=== PATIENT | female | born 1955 | race Caucasian/White ===

== ENCOUNTER 2023-09-13 06:26 | Observation (INO) ==
[~2023-09-13 06:26] MED LIST: Naloxone 0.4 mg VIAL 0.4 mg/ml 1 ml VIAL IV PRN; Rocuronium 50 mg VIAL 10 mg/ml 5 ml VIAL (50 mg) ONE; fentaNYL 100 mcg/2 ml 50 MCG/ML VIAL IV PRN
[2023-09-13] MEDS ORDERED: Ondansetron 4 mg VIAL 2 MG/ML 2 ml VIAL ONE (06:27)
[2023-09-13] MEDS ORDERED: fentaNYL 100 mcg/2 ml 50 MCG/ML VIAL ONE (06:27)
[2023-09-13] MEDS ORDERED: Lidocaine 2% PF 5 ML VIAL ONE (06:27)
[2023-09-13] MEDS ORDERED: Sterile Water for Inj 10 ML ONE (06:27)
[2023-09-13] MEDS ORDERED: Midazolam 2 mg/2 ml VIAL 1 mg/ml 2 ml VIAL (2 mg) ONE (06:27)
[2023-09-13] MEDS ORDERED: Sevoflurane BOTTLE ONE (06:27)
[2023-09-13] MEDS ORDERED: Dexamethasone IV 4 MG/ML VIAL 1 ml VIAL ONE ×2 (06:27→07:54)
[2023-09-13] MEDS ORDERED: Heparin 5000 UNITS/ML 1 mL VIAL IV ONE (07:03)
[2023-09-13] MEDS ORDERED: ceFAZolin 2 GM in NS PREMIX 2 GM/100 ML BAG IVPB ONE (07:03)
[2023-09-13] MEDS ORDERED: Bupivacaine 0.5% SDV PF 30ML VIAL ONE (07:11)
[2023-09-13] MEDS ORDERED: ISOSULFAN BLUE 1% 5 ML VIAL 10 MG/ML SUBCUT ONE (07:11)
[2023-09-13] MEDS ORDERED: Scopolamine 1 mg/72hr PATCH ONE (07:30)
[2023-09-13] MEDS ORDERED: Acetaminophen IV 1 GM/100ML 1,000 MG/100 ML BAG IV ONE (08:09)
[2023-09-13] MEDS ORDERED: Rocuronium 50 mg VIAL 10 mg/ml 5 ml VIAL (50 mg) ONE (09:28)
[2023-09-13] MEDS ORDERED: KETAMINE HCL 10 MG/ML 20 ml VIAL (200 MG) ONE (10:54)
[2023-09-13] MEDS ORDERED: ceFAZolin 1 GM in Dextrose 1 GM/50 ML BAG ONE ×2 (11:41→11:42)
[2023-09-13] MEDS: ceFAZolin VIAL 2 GM in NS 0.9% 100 ml BAG 100 ML IVPB SCH (12:00)
[2023-09-13] MEDS ORDERED: HYDROmorphone 0.5 MG/0.5 ML SYRINGE ONE (12:40)
[2023-09-13] MEDS ORDERED: Benzocaine/Menthol LOZ PO PRN (13:19)
[2023-09-13] MEDS ORDERED: Albuterol HFA INHALER 8 gm MDI INH PRN (13:30)
[2023-09-13] MEDS ORDERED: Lidocaine 4% CREAM (LMX) 5 GM TUBE TOPICAL SCH (13:30)
[2023-09-13] MEDS: Lactated Ringers 1000 ml BAG 1,000 ML IV SCH (15:54)
[2023-09-13] MEDS ORDERED: ceFAZolin 2 GM PREMIX 2 GM/50 ML BAG IV SCH (16:00)
[2023-09-13] MEDS: ALENDRONATE 70 MG PO SCH (16:43)
[2023-09-13] MEDS: NS 0.9% 1000 ml BAG 1,000 ML IV SCH (16:43)
[2023-09-13] MEDS: Heparin 5000 UNITS/ML 1 mL VIAL SUBCUT SCH (17:20)
[2023-09-13] MEDS: Buffered Lidocaine 1% SYRIN 1 ml INTRADERM ONE (17:32)
[2023-09-13] MEDS: Nicotine PATCH 21 MG/24 HR PATCH TRANSDERM SCH (18:35)
[2023-09-13] MEDS ORDERED: Nicotine GUM 2MG FRUIT FLAVOR PO PRN (18:38)
[2023-09-13] MEDS ORDERED: Magnesium Hydroxide LIQ 30 ML UDC PO PRN (19:01)
[2023-09-13] MEDS ORDERED: Polyethylene Glycol 3350 17 GM PACKET PO PRN (19:01)
[2023-09-13] MEDS ORDERED: Senna TAB 8.6 mg TAB PO PRN (19:01)
[2023-09-13] MEDS: Mometasone/Formoter 200/5 MDI INH SCH (19:39)
[2023-09-13] MEDS: ceFAZolin 2 GM PREMIX 2 GM/50 ML BAG IV SCH (19:57)
[2023-09-13] MEDS: Magnesium Hydroxide LIQ 30 ML UDC PO SCH (20:34)
[2023-09-13] MEDS ORDERED: Fluticas/Salmet 230/21 HFA(NF) MDI INH SCH (21:00)
[2023-09-13] MEDS: HYDROcodone/ACETAMIN 5/325 mg TAB PO PRN (21:44)
[2023-09-14] MEDS: Morphine 2 MG/ML SYRINGE IV PRN (01:02)
[2023-09-14] MEDS: HYDROcodone/ACETAMIN 5/325 mg TAB PO PRN (04:15)
[2023-09-14] MEDS: SPIRIVA Respimat (tiotropium) 2.5 mcg/inh Inhaler INH SCH (07:22)
[2023-09-14] MEDS: CMCS:Isosorbide Mononitr 20 mg (NF) PO SCH (09:56)
[2023-09-14] MEDS: Venlafaxine XR 75 mg PO SCH (09:58)
[2023-09-14] MEDS: Aspirin EC 81 mg TAB.EC (enteric coated) PO SCH (09:59)
[2023-09-15 10:09] VITALS: BP 139/68
== END 2023-09-15 14:20 | disposition home or self-care (01) ==
LOC: INTOOBSV 06:26 → AA 06:26 → SSU 15:28
PROVIDERS: ADMIT Student in an Organized Health Care Education/Training Program; ATTEND Student in an Organized Health Care Education/Training Program